=== PATIENT | female | born 2005 | race Two or more races ===

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

== ENCOUNTER 2025-02-26 14:39 | Inpatient (IN) | payer BC ==
[~2025-02-26] VITALS: Ht 162.6 cm; Wt 53.3 kg
[2025-02-26 14:57] LABS: Basophils # (auto) 0 10 ^3/uL (0-0.2); Basophils % (auto) 0.6 % (0.0-2.0); Eosinophils # (auto) 0 10 ^3/uL (0-0.8); Eosinophils % (auto) 0.4 % (0.0-7.0); Hematocrit 42.6 % (36.0-46.0); Hemoglobin 14.3 g/dL (12.2-16.2); Mean Corpuscular Hemoglobin 27.9 pg (28.0-32.0); Mean Corpuscular Hgb Conc. 33.5 g/dL (32.0-36.0); Mean Corpuscular Volume 83.4 fL (80.0-100.0); Monocytes # (auto) 0.4 10 ^3/uL (0-1.3); Neutrophils # (auto) 5.7 10 ^3/uL (1.6-8.6); Nucleated Red Blood Cells % 0.1 %; Platelet Count (auto) 234 10^3/uL (140-450); Red Blood Cells 5.11 10^6/uL (4.0-5.20); Red Cell Distribution Width 15.7 % (11.8-14.3); White Blood Cell 8.2 10^3/uL (4.4-10.8)
--- NOTE | 2025-02-26 15:03 | ED.PDOC ---
History of Present Illness HPI Comments 19-year-old female presents to the ER with prior surgical history of right calf in the chief complaint of palpitations. Patient reports having her heart rate beating fast whenever she stands up as well as goes black for 1 second. Patient stated these symptoms happened on Thursday, and the her heart rate no rmalizes when she sits down. Urgent care recently and was informed that she has possible anxiety. Patient notes on having headache which was not constant. Denies chills, fever, N/V/D, SOB, CP. No other associated symptoms, modifiers, recent injuries or sick contacts present at this time. Chief Complaint: Palpitations Time Seen by MD: 14:50 Reviewed Notes: Nurses Notes, Medications, Allergies Allergies: Coded Allergies: NO KNOWN ALLERGIES (Unverified , 01/10/18) Information Source: Patient Mode of Arrival: Ambulatory Severity: Moderate Timing: Days Duration: Since onset, Days Prehospital treatment: None Past Medical History PAST MEDICAL HISTORY: Denies Surgical History (Other): Right calf surgery NETWORK SUPPORT History: Denies all NETWORK SUPPORT Hx Family History Family History: Reviewed,noncontributory to illness, Unknown Social History Smoker: Non-Smoker Alcohol: Denies ETOH Use Drugs: Denies Drug Use Lives In: Home Constitutional: denies: chills, diaphoresis, fatigue, fever, malaise, sweats, weakness, others EENTM: denies: blurred vision, double vision, ear bleeding, ear discharge, ear drainage, ear pain, ear ringing, eye pain, eye redness, hearing loss, mouth pain, mouth swelling, nasal discharge, nose bleeding, nose congestion, nose pain, photophobia, tearing, throat pain, throat swelling, voice changes, others Respiratory: denies: cough, hemoptysis, orthopnea, SOB at rest, shortness of breath, SOB with excertion, stridor, wheezing, others Cardiovascular: reports: palpitations; denies: chest pain, dizzy spells, diaphoresis, Dyspnea on exertion, edema, irregular heart beat, left arm pain, lightheadedness, PND, syncope, others Gastrointestinal: denies: abdomen distended, abdominal pain, blood streaked bowels, constipated, diarrhea, dysphagia, difficulty swallowing, hematemesis, melena, nausea, poor appetite, poor fluid intake, rectal bleeding, rectal pain, vomiting, others Genitourinary: denies: abnormal vagina bleeding, burning, dyspareunia, dysuria, flank pain, frequency, hematuria, incontinence, pain, , vagina discharge, urgency, others Neurological: denies: dizziness, fainting, headache, left sided numbness, left sided weakness, numbness, paresthesia, pre-existing deficit, right sided numbness, right sided weakness, seizure, speech problems, tingling, tremors, weakness, others Musculoskeletal: denies: back pain, gout, joint pain, joint swelling, muscle pain, muscle stiffness, neck pain, others Integumetry: denies: bruises, change in color, change in hair/nails, dryness, laceration, lesions, lumps, rash, wounds, others Allergic/Immunocompromised: denies: Difficulty Healing, Frequent Infections, Hives, Itching, others Hematologic/Lymphatic: denies: anemia, blood clots, easy bleeding, easy bruising, swollen glands, others Endocrine: denies: excessive hunger, excessive sweating, excessive thirst, excessive urination, flushing, intolerance to cold, intolerance to heat, unexplained weight gain, unexplained weight loss, others Psychiatric: denies: anxiety, bipolar disorder, depression, hopeless, panic disorder, schizophrenia, sleepless, suicidal, others All Other Systems: Reviewed and Negative Physical Exam General Appearance: Moderate Distress, Normal HEENT: Normal ENT Inspection, Pharynx Normal, TMs Normal Neck: Full Range of Motion, Non-Tender, Normal, Normal Inspection Respiratory: Chest Non-Tender, Lungs Clear, No Accessory Muscle Use, No Respiratory Distress, Normal Breath Sounds Cardiovascular: No Edema, No JVD, No Murmur, No Gallop, Normal Peripheral Pulses, Tachycardia Breast Exam: Deferred Gastrointestinal: No Organomegaly, Non Tender, No Pulsatile Mass, Normal Bowel Sounds, Soft Genitalia: Deferred Pelvic: Deferred Rectal: Deferred Extremities: No calf tenderness, Normal capillary refill, Normal inspection, Normal range of motion, Non-tender, No pedal edema Musculoskeletal : Apperance: Normal Neurologic: Alert, foreign car mechanic II-XII nml as Tested, No Motor Deficits, Normal Affect, Normal Mood, No Sensory Deficits Cerebellar Function: Normal Reflexes: Normal Skin: Dry, Normal Color, Warm Peripheral Pulses: 3+ Radial (R), 3+ Radial (L) Lymphatic: No Adenopathy Was a procedure done? Was a procedure done?: No EKG EKG : Pulse Rate (adult): 152 [place]: Normal Cardiac Rhythm: ST Block: None Hypertrophy: None ST: Normal Differential Dx Considerations may include: Thyroid Electrolyte imbalance X-Ray, Labs, Meds, VS Vital Signs Date Time Temp Pulse Resp B/P (MAP) Pulse Ox O2 Delivery O2 Flow Rate FiO2 02/26/25 15:12 98.5 144 16 134/86 (102) 95 98.5 02/26/25 15:12 144 14 98 Room Air* 0 21 02/26/25 15:03 152 02/26/25 14:45 152 02/26/25 14:39 98.5 163 18 121/59 (79) 95 98.5 Lab Test 02/26/25 14:30 Range/Units White Blood Count 8.2 4.4-10.8 10^3/uL Red Blood Count 5.11 4.0-5.20 10^6/uL Hemoglobin 14.3 12.2-16.2 g/dL Hematocrit 42.6 36.0-46.0 % Mean Corpuscular Volume 83.4 80.0-100.0 fL Mean Corpuscular Hemoglobin 27.9 L 28.0-32.0 pg Mean Corpuscular Hemoglobin Concent 33.5 32.0-36.0 g/dL Red Cell Distribution Width 15.7 H 11.8-14.3 % Platelet Count 234 140-450 10^3/uL Mean Platelet Volume 8.9 6.9-10.8 fL Neutrophils (%) (Auto) 70.0 37.0-80.0 % Lymphocytes (%) (Auto) 24.0 10.0-50.0 % Monocytes (%) (Auto) 5.0 0.0-12.0 % Eosinophils (%) (Auto) 0.4 0.0-7.0 % Basophils (%) (Auto) 0.6 0.0-2.0 % Neutrophils # (Auto) 5.7 1.6-8.6 10 ^3/uL Lymphocytes # (Auto) 2.0 0.4-5.4 10 ^3/uL Monocytes # (Auto) 0.4 0-1.3 10 ^3/uL Eosinophils # (Auto) 0 0-0.8 10 ^3/uL Basophils # (Auto) 0 0-0.2 10 ^3/uL Nucleated Red Blood Cells 0.1 % Sodium Level Pending Potassium Level Pending Chloride Level Pending Carbon Dioxide Level Pending Anion Gap Pending Blood Urea Nitrogen Pending Creatinine Pending Glomerular Filtration Rate Calc Pending BUN/Creatinine Ratio Pending Serum Glucose Pending Calcium Level Pending Troponin I High Sensitivity Pending Thyroid Stimulating Hormone (TSH) Pending Current Medications Medications (Trade) Dose Ordered Sig/Maira Route Start Time Stop Time Status Last Admin Lorazepam (Ativan Tablet) 1 mg ONCE ONCE PO 02/26/25 14:45 02/26/25 14:46 DC 02/26/25 15:09 Patient alert. Complaining of palpitations. Heart rate is increased. Saturation pristine on room air. Establish intravenous access. Has been like this for almost a week. Possibly mitral valve disease. Explained to the patient that she will need further workup by Cardiology such as echocardiogram. Continue monitoring. EKG does show sinus tachycardia. Time of 1ST Reevaluation: 15:20 Reevaluation 1ST: Unchanged Patient Education/Counseling: Diagnosis, Treatment, Prognosis Family Education/Counseling: No Family Present Departure 1 Departure Time of Disposition: 15:41 Impression: Primary Impression: Sinus tachycardia Additional Impression: Mitral valve disease Disposition: ADMITTED INPATIENT Admit to: Med Surg Condition: Guarded Critical Care Note Critical Care Time?: Yes (90 min-critical care time only) Critical care comment: Increased heart rate Stability Stability form required: No Heart Score Heart Score: Heart Score Response (Comments) Value History Slightly Suspicious 0 EKG Normal 0 Age <45 0 Risk Factors No known risk factors 0 Troponin N/A 0 Total 0 I personally scribed for AURELIA MALIK MD ([email or web address]) on 02/26/25 at 15:03. Electronically submitted by Ronak Reyez ([email or web address]). AURELIA MALIK MD February 26, 2025 15:03
[2025-02-26] MEDS: LORazepam 0.5 MG TAB PO ONE (15:09)
[2025-02-26 15:12] VITALS: PULSE 144; RESP 14; O2SAT 98
[2025-02-26 15:12] LABS: Chloride 103 mmol/L (98-107); Sodium 139 mmol/L (136-145)
[2025-02-26 15:13] LABS: Anion Gap 13 (5-15); Carbon Dioxide 23 mmol/L (20-31)
[2025-02-26 15:18] LABS: BUN/Creatinine Ratio 10.4 (10.0-20.0); Blood Urea Nitrogen 10 mg/dL (9-23)
[2025-02-26 15:50] LABS: Calcium 10.7 mg/dL (8.7-10.4); Glucose 124 mg/dL (74-106); Potassium 3.3 mmol/L (3.5-5.1)
[2025-02-26] MEDS ORDERED: ACETAMINOPHEN 325 MG TAB PO PRN (19:15)
[2025-02-26] MEDS ORDERED: ONDANSETRON HCL 4 MG/2 ML VIAL IV PRN (19:15)
[2025-02-26] MEDS ORDERED: DOCUSATE SOD 100 MG CAP PO PRN (19:15)
[2025-02-26] MEDS ORDERED: HYDROcodone-ACET 5/325MG TAB PO PRN (19:15)
--- NOTE | 2025-02-26 19:22 | DVHHP2 ---
Admitting Diagnosis: Palpitation History of Present Illness 19-year-old female presents to the ER with prior surgical history of right calf in the chief complaint of palpitations. Patient reports having her heart rate beating fast whenever she stands up as well as goes black for 1 second. Patient stated these symptoms happened on Thursday, and the her heart rate normalizes when she sits down. Urgent care recently and was informed that she has possible anxiety. Patient notes on having headache which was not constant. Denies chills, fever, N/V/D, SOB, CP. No other associated symptoms, modifiers, recent injuries or sick contacts present at this time. PAST MEDICAL HISTORY: Denies Surgical History (Other): Right calf surgery IS CONSULTANT History: Denies all IS CONSULTANT Hx Family History Family History: Reviewed,noncontributory to illness, Unknown Social History Smoker: Non-Smoker Alcohol: Denies ETOH Use Drugs: Denies Drug Use Lives In: Home Allergies: Coded Allergies: NO KNOWN ALLERGIES (Unverified , 01/10/18) Current Medications Current Medications Medications (Trade) Dose Ordered Sig/Maira Route PRN Reason Start Time Stop Time Status Last Admin Sodium Chloride (Saline Lock Ns) 10 ml Q8HR IV 02/26/25 22:00 UNV Docusate Sodium (Colace Capsule) 100 mg BIDPRN PRN PO FOR CONSTIPATION 02/26/25 19:15 UNV Acetaminophen (Tylenol Tablet) 650 mg Q6HP PRN PO PAIN SCALE 1-3 OR TEMP>100.4 02/26/25 19:15 UNV Acetaminophen/ Hydrocodone Bitart ([place] 5/325MG Tab) 1 tab Q4HP PRN PO MODERATE PAIN (4-6 PAIN SCALE) 02/26/25 19:15 UNV Ondansetron HCl (Zofran) 4 mg Q4HP PRN IV NAUSEA / VOMITING 02/26/25 19:15 UNV Enoxaparin Sodium (Lovenox) 40 mg DAILY SC 02/27/25 10:00 UNV Vital Signs Vital Signs Date Time Temp Pulse Resp B/P (MAP) Pulse Ox O2 Delivery O2 Flow Rate FiO2 02/26/25 18:00 115 16 130/76 (94) 98 02/26/25 15:12 98.5 98.5 02/26/25 15:12 Room Air* 0 21 Physical Exam Generally-29 years old woman, well nourished well developed. No apparent distress HEENT-atraumatic, normocephalic Heart-sinus tachycardic Lungs clear to auscultate bilaterally Abdomen soft nontender nondistended Musculoskeletal-no edema cyanosis Neuro-AO x3, no focal deficits Results Labs Test 02/26/25 14:30 Range/Units White Blood Count 8.2 4.4-10.8 10^3/uL Red Blood Count 5.11 4.0-5.20 10^6/uL Hemoglobin 14.3 12.2-16.2 g/dL Hematocrit 42.6 36.0-46.0 % Mean Corpuscular Volume 83.4 80.0-100.0 fL Mean Corpuscular Hemoglobin 27.9 L 28.0-32.0 pg Mean Corpuscular Hemoglobin Concent 33.5 32.0-36.0 g/dL Red Cell Distribution Width 15.7 H 11.8-14.3 % Platelet Count 234 140-450 10^3/uL Mean Platelet Volume 8.9 6.9-10.8 fL Neutrophils (%) (Auto) 70.0 37.0-80.0 % Lymphocytes (%) (Auto) 24.0 10.0-50.0 % Monocytes (%) (Auto) 5.0 0.0-12.0 % Eosinophils (%) (Auto) 0.4 0.0-7.0 % Basophils (%) (Auto) 0.6 0.0-2.0 % Neutrophils # (Auto) 5.7 1.6-8.6 10 ^3/uL Lymphocytes # (Auto) 2.0 0.4-5.4 10 ^3/uL Monocytes # (Auto) 0.4 0-1.3 10 ^3/uL Eosinophils # (Auto) 0 0-0.8 10 ^3/uL Basophils # (Auto) 0 0-0.2 10 ^3/uL Nucleated Red Blood Cells 0.1 % Sodium Level 139 136-145 mmol/L Potassium Level 3.3 L 3.5-5.1 mmol/L Chloride Level 103 98-107 mmol/L Carbon Dioxide Level 23 20-31 mmol/L Anion Gap 13 5-15 Blood Urea Nitrogen 10 9-23 mg/dL Creatinine 0.96 0.550-1.02 mg/dL Glomerular Filtration Rate Calc 87 >90 mL/min BUN/Creatinine Ratio 10.4 10.0-20.0 Serum Glucose 124 H 74-106 mg/dL Calcium Level 10.7 H 8.7-10.4 mg/dL Troponin I High Sensitivity < 3 L </=34 ng/L Thyroid Stimulating Hormone (TSH) 0.63 0.55-4.78 uIU/mL Primary Diagnosis Sinus tachycardic Plan Rate and rhythm a 122/40 The patient is mildly anxious Hydroxyzine p.r.n. Check TSH, T4 for possible thyroid Check echocardiogram of the heart for restrictive heart disease Regular diet Full code Lovenox for DVT prophylaxis No GI prophylaxis needed Plan discussed with: Patient Problems List: (1) Sinus tachycardia Status: Acute Date of Service: February 26, 2025 Billing Provider: SHEREE ANNE MD Common Visit Codes: [id number] INP/OBS CARE (MOD) SHEREE ANNE MD February 26, 2025 19:22
[2025-02-26 19:30] VITALS: O2SAT 98
[2025-02-26] MEDS: POTASSIUM CHL 20 Meq TABLET PO ONE (19:55)
[2025-02-26] MEDS: SODIUM CHLOR 0.9% PF (SALINE LOCK) 10ML VIAL/SYR IV SCH (22:00)
[2025-02-26 23:09] LABS: Urine Bacteria FEW /hpf (None Seen); Urine Blood Negative /uL (Negative); Urine Clarity Clear (Clear); Urine Color Colorless (Yellow); Urine Protein, UAD Negative (Negative); Urine Specific Gravity 1.008 (1.001-1.035); Urine Squamous Epithelial Cell FEW /hpf (<5); Urine Urobilinogen Normal (Negative); Urine WBC 45 /HPF (0-5); Urine pH 6.5 (5.0-9.0)
[2025-02-26 23:17] VITALS: BP 129/79; PULSE 120; RESP 18; TEMP 97.4; O2SAT 98
[2025-02-26 23:18] VITALS: BP 129/79; PULSE 120; RESP 17; TEMP 99.4; O2SAT 98
[2025-02-27] VITALS (8 sets, daily range): BP systolic 103–122; BP diastolic 66–73; PULSE 74–113; RESP 15–20; TEMP 97.8–98.7; O2SAT 98–100
[2025-02-27 07:35] LABS: Basophils # (auto) 0.1 10 ^3/uL (0-0.2); Basophils % (auto) 1.1 % (0.0-2.0); Eosinophils # (auto) 0.1 10 ^3/uL (0-0.8); Eosinophils % (auto) 1.5 % (0.0-7.0); Hematocrit 40.5 % (36.0-46.0); Hemoglobin 13.4 g/dL (12.2-16.2); Lymphocytes # (auto) 2.3 10 ^3/uL (0.4-5.4); Lymphocytes % (auto) 37.7 % (10.0-50.0); Mean Corpuscular Hemoglobin 27.7 pg (28.0-32.0); Mean Corpuscular Volume 83.7 fL (80.0-100.0); Monocytes # (auto) 0.4 10 ^3/uL (0-1.3); Monocytes % (auto) 6.8 % (0.0-12.0); Neutrophils # (auto) 3.3 10 ^3/uL (1.6-8.6); Neutrophils % (auto) 52.9 % (37.0-80.0); Nucleated Red Blood Cells % 0.1 %; Platelet Count (auto) 192 10^3/uL (140-450); Red Blood Cells 4.84 10^6/uL (4.0-5.20); Red Cell Distribution Width 15.5 % (11.8-14.3); White Blood Cell 6.2 10^3/uL (4.4-10.8)
[2025-02-27 07:41] LABS: Alkaline Phosphatase 73 U/L (46-116); Anion Gap 11 (5-15); BUN/Creatinine Ratio 13.5 (10.0-20.0); Blood Urea Nitrogen 12 mg/dL (9-23); Calcium 10.4 mg/dL (8.7-10.4); Carbon Dioxide 24 mmol/L (20-31); Chloride 105 mmol/L (98-107); Glucose 86 mg/dL (74-106); Magnesium 2.2 mg/dL (1.6-2.6); Potassium 4.3 mmol/L (3.5-5.1); Sodium 140 mmol/L (136-145); Total Protein 7.6 g/dL (5.7-8.2)
[2025-02-27 07:42] LABS: Bilirubin, Total 0.6 mg/dL (0.2-1.0)
[2025-02-27 07:43] LABS: Alanine Aminotransferase < 9 U/L (7-40); Albumin 4.8 g/dL (3.2-4.8); Aspartate Aminotransferase 10 U/L (13-40)
[2025-02-27] MEDS: ENOXAPARIN SOD 40 MG/0.4 ML SYRINGE SC SCH (09:13)
--- NOTE | 2025-02-27 11:20 | DVHSR ---
APPROVED REPORT EXAM: LIMITED Two-dimensional and M-mode echocardiogram with Doppler and color Doppler. Blood Pressure: 109/66 mmHg INDICATION Sinus Tachycardia RISK FACTORS Height: 64, Weight: 100 DIMENSIONS LVDd3.4 (3.8-5.7cm)LA (2D)2.4 (1.9-4.0cm)Aortic Root2.6 (2.0-3.7cm) LVDs2.3 (2.5-4.0cm)LA (MM) (1.9-4.0cm)Aortic Cusp Exc1.6 (1.5-2.0cm) EF (%) 62.0 (55-70%)Rt. Atrium (1.9-4.0cm)Asc. Aorta cm IVSd0.9 (0.7-1.1cm)RV (D) (1.8-2.4cm) PWd0.8 (0.7-1.1cm) Mitral Valve MitralMitral Stenosis E/A ratio0.02D MVAcm2 Aortic Valve Aortic ValveAortic Stenosis LVOT Diameter1.6 (1.8-2.4cm)Doppler AVAcm2 Pulmonic Valve V20.94m/s Tricuspid Valve [id number] Other Information Technically limited study due to body habitus, patient position and high heart rate. Conclusion Left ventricle: Left ventricle was normal sized with normal systolic function. LVEF was 60-65%. The re was no gross wall motion abnormality. Right ventricle: Right ventricle was normal sized with normal systolic function. Both atria were nor mal sized. Aortic valve: Aortic valve was trileaflet. There was no aortic insufficiency/stenosis. There was tr narinder mitral regurgitation. There was no tricuspid regurgitation. Pulmonary valve was not well visual ized. As there was no good tricuspid regurgitation jet, right ventricular systolic pressure could not be es timated. There was no echocardiographic evidence for pulmonary hypertension. There was trivial pericardial effusion.
--- NOTE | 2025-02-27 13:17 | DVHPN2 ---
Reviewed: Care Plan, H&P, Labs, Medications, Previous Orders, Radiology Changes from previous H/P or p: No Changes Objective Vitals Vital Signs Date Time Temp Pulse Resp B/P (MAP) Pulse Ox O2 Delivery O2 Flow Rate FiO2 02/27/25 09:25 97.8 107 15 106/68 (81) 99 97.8 02/26/25 23:17 Room Air* 0 21 Intake/Output Intake and Output 02/27/25 07:00 Intake Total 150 ml Balance 150 ml Intake Oral 150 ml Medications Current Medications Medications Dose Ordered Sig/Maira Route Start Time Stop Time Status Last Admin Dose Admin Sodium Chloride 10 ml Q8HR IV 02/26/25 22:00 02/27/25 06:35 10 ML Docusate Sodium 100 mg BIDPRN PRN PO 02/26/25 19:15 Acetaminophen 650 mg Q6HP PRN PO 02/26/25 19:15 Acetaminophen/ Hydrocodone Bitart 1 tab Q4HP PRN PO 02/26/25 19:15 Ondansetron HCl 4 mg Q4HP PRN IV 02/26/25 19:15 Enoxaparin Sodium 40 mg DAILY SC 02/27/25 10:00 Hydroxyzine HCl 20 mg Q6H PRN PO 02/26/25 19:15 Laboratory Results Laboratory Tests 02/27/25 05:25 Chemistry Test 02/26/25 14:30 02/27/25 05:25 Calcium Level 10.7 mg/dL (8.7-10.4) H 10.4 mg/dL (8.7-10.4) Albumin 4.8 g/dL (3.2-4.8) Magnesium Level 2.2 mg/dL (1.6-2.6) Total Protein 7.6 g/dL (5.7-8.2) LFT Test 02/27/25 05:25 Alanine Aminotransferase (ALT) < 9 U/L (7-40) Alkaline Phosphatase 73 U/L (46-116) Aspartate Amino Transferase (AST) 10 U/L (13-40) L Total Bilirubin 0.6 mg/dL (0.2-1.0) HgA1c, TSH Test 02/26/25 14:30 Thyroid Stimulating Hormone (TSH) 0.63 uIU/mL (0.55-4.78) Urinalysis Test 02/26/25 22:56 Urine Color Colorless (Yellow) Urine Clarity Clear (Clear) Urine pH 6.5 (5.0-9.0) Urine Specific [place] 1.008 (1.001-1.035) Urine Protein Negative (Negative) Urine Ketones 2+ (Negative) H Urine Blood Negative /uL (Negative) Urine Nitrite Negative (Negative) Urine Bilirubin Negative (Negative) Urine Urobilinogen Normal mg/dL (Negative) Urine Leukocyte Esterase 3+ /uL (Negative) Urine RBC 2 /hpf (0 - 4) Urine Microscopic WBC 45 /HPF (0-5) H Urine Squamous Epithelial Cells Few /hpf (<5) Urine Bacteria Few /hpf (None Seen) H Urine Glucose Normal mg/dL (Normal) Labs and/or images reviewed: Labs reviewed by me, Image(s) reviewed by me Assessment/Plan Assessment/Plan Intermittent tachycardia: TSH normal, urine drug screen pending beta HCG pending, echo 60 percent ejection fraction, cardiology consult for Dr. Flores Sepsis secondary to acute urinary tract infection: Blood cultures urine cultures Stefani Xiong and ROSSI Saha at bedside Plan discussed with: Patient My Orders Orders - BASASM WOLF MD Procedure Category Date Status Time Blood Culture TREE 02/27/25 Logged 13:08 Urine Bacterial TREE 02/27/25 Logged Culture 13:08 * Cardiology Consult CONS 02/27/25 Transmitted 13:08 Beta Hcg, Quantitative LAB 02/27/25 Transmitted 13:11 Date of Service: February 27, 2025 Billing Provider: BASSAM WOLF MD Common Visit Codes: [id number] INP/OBS CARE(HIGH) BASSAM WOLF MD February 27, 2025 13:17
[2025-02-27] MEDS: cefTRIAXone 1GM/50ML D5W 50 ML IV ONE (14:50)
[2025-02-27 16:31] LABS: Amphetamine Screen, Urine Neg (NEGATIVE); Barbiturate Scree,Urine Neg (NEGATIVE); Benzodiazephine Screen, Urine Neg (NEGATIVE); Cannabinoid Screen, Urine Neg (NEGATIVE); Cocaine Screen, Urine Neg (NEGATIVE); Opiate Scree,Urine Neg (NEGATIVE); Phencyclidine Screen, Urine Neg (NEGATIVE)
[2025-02-28] VITALS (7 sets, daily range): BP systolic 103–127; BP diastolic 63–76; PULSE 73–103; RESP 16–20; TEMP 97.8–98.4; O2SAT 98–99
[2025-02-28 06:18] LABS: Basophils # (auto) 0.1 10 ^3/uL (0-0.2); Basophils % (auto) 1.1 % (0.0-2.0); Eosinophils # (auto) 0.2 10 ^3/uL (0-0.8); Eosinophils % (auto) 2.9 % (0.0-7.0); Hematocrit 38.2 % (36.0-46.0); Hemoglobin 12.6 g/dL (12.2-16.2); Lymphocytes # (auto) 2.3 10 ^3/uL (0.4-5.4); Lymphocytes % (auto) 43.9 % (10.0-50.0); Mean Corpuscular Hemoglobin 27.8 pg (28.0-32.0); Mean Corpuscular Hgb Conc. 33.1 g/dL (32.0-36.0); Monocytes # (auto) 0.4 10 ^3/uL (0-1.3); Monocytes % (auto) 6.7 % (0.0-12.0); Neutrophils # (auto) 2.4 10 ^3/uL (1.6-8.6); Neutrophils % (auto) 45.4 % (37.0-80.0); Nucleated Red Blood Cells % 0.1 %; Platelet Count (auto) 174 10^3/uL (140-450); Red Blood Cells 4.55 10^6/uL (4.0-5.20); Red Cell Distribution Width 15.8 % (11.8-14.3); White Blood Cell 5.3 10^3/uL (4.4-10.8)
[2025-02-28 06:43] LABS: Alanine Aminotransferase < 9 U/L (7-40); Albumin 4.5 g/dL (3.2-4.8); Alkaline Phosphatase 65 U/L (46-116); Anion Gap 12 (5-15); Aspartate Aminotransferase 10 U/L (13-40); BUN/Creatinine Ratio 12.5 (10.0-20.0); Blood Urea Nitrogen 11 mg/dL (9-23); Calcium 10.1 mg/dL (8.7-10.4); Carbon Dioxide 24 mmol/L (20-31); Chloride 103 mmol/L (98-107); Glucose 94 mg/dL (74-106); Potassium 3.9 mmol/L (3.5-5.1); Sodium 139 mmol/L (136-145); Total Protein 7.1 g/dL (5.7-8.2)
[2025-02-28 06:44] LABS: Bilirubin, Total 0.5 mg/dL (0.2-1.0)
[2025-02-28] MEDS: cefTRIAXone 1GM/50ML D5W 50 ML IV SCH (09:24)
--- NOTE | 2025-02-28 13:11 | DVHPN2 ---
Reviewed: Care Plan, H&P, Labs, Medications, Previous Orders, Radiology Changes from previous H/P or p: No Changes Objective Vitals Vital Signs Date Time Temp Pulse Resp B/P (MAP) Pulse Ox O2 Delivery O2 Flow Rate FiO2 02/28/25 12:29 98.4 103 20 109/70 (83) 98 98.4 02/28/25 08:00 Room Air* 0 21 Intake/Output Intake and Output 02/28/25 07:00 Intake Total 2570 ml Balance 2570 ml Intake Oral 2520 ml IV Total 50 ml # Voids 6 Medications Current Medications Medications Dose Ordered Sig/Maira Route Start Time Stop Time Status Last Admin Dose Admin Sodium Chloride 10 ml Q8HR IV 02/26/25 22:00 02/28/25 06:30 10 ML Docusate Sodium 100 mg BIDPRN PRN PO 02/26/25 19:15 Acetaminophen 650 mg Q6HP PRN PO 02/26/25 19:15 Acetaminophen/ Hydrocodone Bitart 1 tab Q4HP PRN PO 02/26/25 19:15 Ondansetron HCl 4 mg Q4HP PRN IV 02/26/25 19:15 Enoxaparin Sodium 40 mg DAILY SC 02/27/25 10:00 Hydroxyzine HCl 20 mg Q6H PRN PO 02/26/25 19:15 Ceftriaxone Sodium 50 ml @ 100 mls/hr DAILY@09 IV 02/28/25 09:00 02/28/25 09:24 100 MLS/HR Laboratory Results Laboratory Tests 02/28/25 05:10 Chemistry Test 02/28/25 05:10 Albumin 4.5 g/dL (3.2-4.8) Calcium Level 10.1 mg/dL (8.7-10.4) Magnesium Level 2.0 mg/dL (1.6-2.6) Total Protein 7.1 g/dL (5.7-8.2) LFT Test 02/28/25 05:10 Alanine Aminotransferase (ALT) < 9 U/L (7-40) Alkaline Phosphatase 65 U/L (46-116) Aspartate Amino Transferase (AST) 10 U/L (13-40) L Total Bilirubin 0.5 mg/dL (0.2-1.0) Urinalysis Test 02/26/25 22:56 Urine Color Colorless (Yellow) Urine Clarity Clear (Clear) Urine pH 6.5 (5.0-9.0) Urine Specific [place] 1.008 (1.001-1.035) Urine Protein Negative (Negative) Urine Ketones 2+ (Negative) H Urine Blood Negative /uL (Negative) Urine Nitrite Negative (Negative) Urine Bilirubin Negative (Negative) Urine Urobilinogen Normal mg/dL (Negative) Urine Leukocyte Esterase 3+ /uL (Negative) Urine RBC 2 /hpf (0 - 4) Urine Microscopic WBC 45 /HPF (0-5) H Urine Squamous Epithelial Cells Few /hpf (<5) Urine Bacteria Few /hpf (None Seen) H Urine Glucose Normal mg/dL (Normal) Microbiology Microbiology Date/Time Source Procedure Growth Status 02/27/25 15:56 Voided Urine Urine Culture - Preliminary Resulted Labs and/or images reviewed: Labs reviewed by me, Image(s) reviewed by me Assessment/Plan Assessment/Plan Intermittent tachycardia: TSH normal, urine drug screen negative, echo 60 percent ejection fraction, cardiology Taina Horne advised the patient to be treated for sepsis and infection and no cardiac workup needed ruled out by negative beta HCG Acute Dehydration: IV fluids Sepsis secondary to acute urinary tract infection: Blood cultures pending, urine cultures negative, continue Rocephin ROSSI Godwin at bed side Plan discussed with: Patient My Orders Orders - BASSAM WOLF MD Procedure Category Date Status Time Blood Culture TREE 02/27/25 In Process 13:08 Urine Bacterial TREE 02/27/25 In Process Culture 13:08 * Cardiology Consult CONS 02/27/25 Transmitted 13:08 Ceftriaxone 1gm/50ml PHA 02/28/25 In Process D5w (Rocephin) 09:00 Date of Service: February 28, 2025 Billing Provider: BASSAM WOLF MD Common Visit Codes: [id number] INP/OBS CARE(HIGH) BASSAM WOLF MD February 28, 2025 13:11
--- NOTE | 2025-02-28 13:33 | ECG ---
[facility] Test Date: 2025-02-26 Test Time: 14:45:16 Pat Name: TERELL DOAN Department: ER Room: 0287T Gender: F Weigher And Grader: BHAVANA : 2005 Requested By: AURELIA MALIK Order Number: [id number] Reading MD: Measurements Intervals [place] Rate: 152 P: 78 UT: 125 QRS: 109 QRSD: 85 T: -6 QT: 242 QTc: 385 Interpretive Statements Sinus tachycardia Consider right atrial enlargement Consider right ventricular hypertrophy Baseline wander in lead(s) III,aVF Please click the below link to view image of tracing.
[2025-02-28] MEDS: SODIUM CHLORIDE 0.9% 1,000 ML IV SCH (13:49)
[2025-02-28] MEDS: hydrOXYzine HCL 10 MG TAB PO PRN (17:18)
[2025-03-01] VITALS (9 sets, daily range): BP systolic 101–142; BP diastolic 60–81; PULSE 70–140; RESP 16–20; TEMP 97.4–98.8; O2SAT 98–100
[2025-03-01 06:45] LABS: Basophils # (auto) 0 10 ^3/uL (0-0.2); Basophils % (auto) 0.9 % (0.0-2.0); Eosinophils # (auto) 0.2 10 ^3/uL (0-0.8); Hematocrit 34.9 % (36.0-46.0); Hemoglobin 11.4 g/dL (12.2-16.2); Lymphocytes # (auto) 2.5 10 ^3/uL (0.4-5.4); Lymphocytes % (auto) 48.3 % (10.0-50.0); Mean Corpuscular Hemoglobin 27.5 pg (28.0-32.0); Mean Corpuscular Hgb Conc. 32.7 g/dL (32.0-36.0); Mean Corpuscular Volume 84.2 fL (80.0-100.0); Monocytes # (auto) 0.3 10 ^3/uL (0-1.3); Monocytes % (auto) 6.6 % (0.0-12.0); Neutrophils # (auto) 2.1 10 ^3/uL (1.6-8.6); Neutrophils % (auto) 41.2 % (37.0-80.0); Nucleated Red Blood Cells % 0.1 %; Platelet Count (auto) 156 10^3/uL (140-450); Red Blood Cells 4.14 10^6/uL (4.0-5.20); Red Cell Distribution Width 15.7 % (11.8-14.3); White Blood Cell 5.2 10^3/uL (4.4-10.8)
[2025-03-01 06:55] LABS: Albumin 3.8 g/dL (3.2-4.8); Alkaline Phosphatase 57 U/L (46-116); Anion Gap 6 (5-15); BUN/Creatinine Ratio 7.4 (10.0-20.0); Calcium 9.2 mg/dL (8.7-10.4); Carbon Dioxide 26 mmol/L (20-31); Glucose 94 mg/dL (74-106); Magnesium 1.9 mg/dL (1.6-2.6); Potassium 4.5 mmol/L (3.5-5.1); Sodium 144 mmol/L (136-145)
[2025-03-01 06:56] LABS: Bilirubin, Total 0.4 mg/dL (0.2-1.0)
[2025-03-01 07:06] LABS: Alanine Aminotransferase < 9 U/L (7-40); Aspartate Aminotransferase 9 U/L (13-40); Blood Urea Nitrogen 6 mg/dL (9-23); Chloride 112 mmol/L (98-107)
--- NOTE | 2025-03-01 13:34 | DVHPN2 ---
Reviewed: Care Plan, H&P, Labs, Medications, Previous Orders, Radiology Changes from previous H/P or p: No Changes Objective Vitals Vital Signs Date Time Temp Pulse Resp B/P (MAP) Pulse Ox O2 Delivery O2 Flow Rate FiO2 03/01/25 12:37 98.3 89 20 103/60 (74) 100 98.3 03/01/25 08:00 Room Air* 0 21 Intake/Output Intake and Output 03/01/25 07:00 Intake Total 5000 ml Balance 5000 ml Intake Oral 2300 ml IV Total 2700 ml # Voids 9 # Bowel Movements 1 Medications Current Medications Medications Dose Ordered Sig/Maira Route Start Time Stop Time Status Last Admin Dose Admin Sodium Chloride 10 ml Q8HR IV 02/26/25 22:00 03/01/25 09:21 10 ML Docusate Sodium 100 mg BIDPRN PRN PO 02/26/25 19:15 Acetaminophen 650 mg Q6HP PRN PO 02/26/25 19:15 Acetaminophen/ Hydrocodone Bitart 1 tab Q4HP PRN PO 02/26/25 19:15 Ondansetron HCl 4 mg Q4HP PRN IV 02/26/25 19:15 Enoxaparin Sodium 40 mg DAILY SC 02/27/25 10:00 Hydroxyzine HCl 20 mg Q6H PRN PO 02/26/25 19:15 02/28/25 17:18 20 MG Ceftriaxone Sodium 50 ml @ 100 mls/hr DAILY@09 IV 02/28/25 09:00 03/01/25 09:21 100 MLS/HR Sodium Chloride 1,000 ml @ 150 mls/hr Q6H40M IV 02/28/25 13:15 03/01/25 09:26 150 MLS/HR Laboratory Results Laboratory Tests 03/01/25 05:34 Chemistry Test 03/01/25 05:34 Albumin 3.8 g/dL (3.2-4.8) Calcium Level 9.2 mg/dL (8.7-10.4) Magnesium Level 1.9 mg/dL (1.6-2.6) Total Protein 6.0 g/dL (5.7-8.2) LFT Test 03/01/25 05:34 Alanine Aminotransferase (ALT) < 9 U/L (7-40) Alkaline Phosphatase 57 U/L (46-116) Aspartate Amino Transferase (AST) 9 U/L (13-40) L Total Bilirubin 0.4 mg/dL (0.2-1.0) Urinalysis Test 02/26/25 22:56 Urine Color Colorless (Yellow) Urine Clarity Clear (Clear) Urine pH 6.5 (5.0-9.0) Urine Specific [place] 1.008 (1.001-1.035) Urine Protein Negative (Negative) Urine Ketones 2+ (Negative) H Urine Blood Negative /uL (Negative) Urine Nitrite Negative (Negative) Urine Bilirubin Negative (Negative) Urine Urobilinogen Normal mg/dL (Negative) Urine Leukocyte Esterase 3+ /uL (Negative) Urine RBC 2 /hpf (0 - 4) Urine Microscopic WBC 45 /HPF (0-5) H Urine Squamous Epithelial Cells Few /hpf (<5) Urine Bacteria Few /hpf (None Seen) H Urine Glucose Normal mg/dL (Normal) Microbiology Microbiology Date/Time Source Procedure Growth Status 02/27/25 15:56 Voided Urine Urine Culture - Preliminary Resulted 02/27/25 14:30 Blood Blood Culture - Preliminary NO GROWTH AFTER 24 HOURS OF INCUBATION. Resulted Labs and/or images reviewed: Labs reviewed by me, Image(s) reviewed by me Assessment/Plan Assessment/Plan Intermittent tachycardia: TSH normal, urine drug screen negative, echo 60 percent ejection fraction, cardiology Taina Horne advised the patient to be treated for sepsis and infection and no cardiac workup needed ruled out by negative beta HCG Acute Dehydration: IV fluids Episodic hypotension Sepsis secondary to acute urinary tract infection: Blood cultures pending, urine cultures negative, continue Rocephin ROSSI Godwin at bed side Patient is unwilling to be discharged home and insisting to be seen by pension manager, requested CAMPAIGN MARKETING SPECIALIST Taina Horne to evaluate the pt. Plan discussed with: Patient, Other (father) Date of Service: March 01, 2025 Billing Provider: BASSAM WOLF MD Common Visit Codes: [id number] INP/OBS CARE(HIGH) BASSAM WOLF MD March 01, 2025 13:34
--- NOTE | 2025-03-01 15:33 | DVHCONRES ---
Date Seen: March 01, 2025 Resident Creating Document: DIANAPAULINA BATEMANIL RESIDENT History of Present Illness 19 year Old female with no past medical history presented with complaints of "increased heart rate" that she recorded on her Apple watch, associated with headache and mild dizziness when she stands up from sitting position. Patient mentioned that she has been feeling anxious Thursday. On presenting to the hospital, patient was found to be in sinus tachycardia was given IV fluids and IV antibiotics for UTI. Cardiology was consulted for "increased heart rate" Patient seen and evaluated at bedside Patient is currently not mentioning any active symptoms. Past medical history Denied Past surgical history Denied Social history Denied smoking, alcohol, marijuana or any other drug intake Patient history Denied Family history Diabetes mellitus and thyroid issues in grand parents Allergic history No known allergies Family History: Cardiovascular disease grandma Diabetes mellitus grandma Allergies: Coded Allergies: NO KNOWN ALLERGIES (Unverified , 01/10/18) Home Meds No Active Prescriptions or Reported Meds Review of Systems As described in the HPI Vital Signs Vital Signs Date Time Temp Pulse Resp B/P (MAP) Pulse Ox O2 Delivery O2 Flow Rate FiO2 03/01/25 13:57 88 115/66 (82) 125 142/72 (95) 140 120/79 (93) 03/01/25 12:37 98.3 20 100 98.3 03/01/25 08:00 Room Air* 0 21 Physical Exam Examination General Appearance: Alert, Oriented X3, Cooperative, No acute distress HEENT: EOMI Respiratory: Clear to auscultation, Normal air movement Cardiovascular: Regular rate, Normal S1, Normal S2 Abdominal: Normal bowel sounds Extremities: No cyanosis, No edema, Normal pulses, No tenderness/swelling Skin: No rashes, No breakdown Neuro: Normal gait, Normal speech, Strength at 5/5 X4 ext, Normal tone, Sensation intact, Cranial nerves 3-12 NL, Reflexes 2+ Psych/Mental Status: Mental status NL, Mood NL Labs/Diagnostic Data Labs Test 03/01/25 05:34 02/27/25 15:56 02/27/25 05:25 02/26/25 22:56 Range/Units White Blood Count 5.2 4.4-10.8 10^3/uL Red Blood Count 4.14 4.0-5.20 10^6/uL Hemoglobin 11.4 L 12.2-16.2 g/dL Hematocrit 34.9 L 36.0-46.0 % Mean Corpuscular Volume 84.2 80.0-100.0 fL Mean Corpuscular Hemoglobin 27.5 L 28.0-32.0 pg Mean Corpuscular Hemoglobin Concent 32.7 32.0-36.0 g/dL Red Cell Distribution Width 15.7 H 11.8-14.3 % Platelet Count 156 140-450 10^3/uL Mean Platelet Volume 9.4 6.9-10.8 fL Neutrophils (%) (Auto) 41.2 37.0-80.0 % Lymphocytes (%) (Auto) 48.3 10.0-50.0 % Monocytes (%) (Auto) 6.6 0.0-12.0 % Eosinophils (%) (Auto) 3.0 0.0-7.0 % Basophils (%) (Auto) 0.9 0.0-2.0 % Neutrophils # (Auto) 2.1 1.6-8.6 10 ^3/uL Lymphocytes # (Auto) 2.5 0.4-5.4 10 ^3/uL Monocytes # (Auto) 0.3 0-1.3 10 ^3/uL Eosinophils # (Auto) 0.2 0-0.8 10 ^3/uL Basophils # (Auto) 0 0-0.2 10 ^3/uL Nucleated Red Blood Cells 0.1 % Sodium Level 144 # 136-145 mmol/L Potassium Level 4.5 3.5-5.1 mmol/L Chloride Level 112 H 98-107 mmol/L Carbon Dioxide Level 26 20-31 mmol/L Anion Gap 6 5-15 Blood Urea Nitrogen 6 L 9-23 mg/dL Creatinine 0.81 0.550-1.02 mg/dL Glomerular Filtration Rate Calc 107 >90 mL/min BUN/Creatinine Ratio 7.4 L 10.0-20.0 Serum Glucose 94 74-106 mg/dL Calcium Level 9.2 8.7-10.4 mg/dL Magnesium Level 1.9 1.6-2.6 mg/dL Total Bilirubin 0.4 0.2-1.0 mg/dL Aspartate Amino Transferase (AST) 9 L 13-40 U/L Alanine Aminotransferase (ALT) < 9 7-40 U/L Alkaline Phosphatase 57 46-116 U/L Total Protein 6.0 5.7-8.2 g/dL Albumin 3.8 3.2-4.8 g/dL Urine Opiates Screen Neg NEGATIVE Urine Fentanyl Screen Neg NEGATIVE Urine Barbiturates Screen Neg NEGATIVE Urine Phencyclidine Screen Neg NEGATIVE Urine Amphetamines Screen Neg NEGATIVE Urine Benzodiazepines Screen Neg NEGATIVE Urine Cocaine Screen Neg NEGATIVE Urine Cannabinoids Screen Neg NEGATIVE Beta HCG, Quantitative 0.6 L 1.5-4.2 mIU/mL Urine Color Colorless Yellow Urine Clarity Clear Clear Urine pH 6.5 5.0-9.0 Urine Specific [place] 1.008 1.001-1.035 Urine Protein Negative Negative Urine Ketones 2+ H Negative Urine Blood Negative Negative /uL Urine Nitrite Negative Negative Urine Bilirubin Negative Negative Urine Urobilinogen Normal Negative mg/dL Urine Leukocyte Esterase 3+ Negative /uL Urine RBC 2 0 - 4 /hpf Urine Microscopic WBC 45 H 0-5 /HPF Urine Squamous Epithelial Cells Few <5 /hpf Urine Bacteria Few H None Seen /hpf Urine Glucose Normal Normal mg/dL Test 02/26/25 14:30 Range/Units Troponin I High Sensitivity < 3 L </=34 ng/L C-Reactive Protein High Sensitivity 0.03 <1.0 mg/dL Thyroid Stimulating Hormone (TSH) 0.63 0.55-4.78 uIU/mL Free Thyroxine (T4) Calculated 1.46 0.89-1.76 ng/dL Microbiology Date/Time Source Procedure Growth Status 02/27/25 15:56 Voided Urine Urine Culture - Preliminary Resulted 02/27/25 14:30 Blood Blood Culture - Preliminary NO GROWTH AFTER 48 HOURS OF INCUBATION. Resulted Plan/Recommendation Assessment/plan # sinus tachycardia likely due to dehydration post UTI, and anxiety -normal EKG Telemetry shows no other abnormalities Echocardiogram within normal limits Orthostatic vitals, positive for orthostatic hypotension # UTI # anxiety PLAN Patient advised to follow up with outpatient with primary care and later Cardiology if patient still has persistent tachycardia after resolution of UTI Outpatient workup for tachycardia including serum cortisol AM and PM levels, endocrine workup, autonomic testing if patient has still persistent tachycardia after resolution of UTI Patient is advised to drink plenty of water and salt intake Patient was advised to use compression stockings if tachycardia persists We will sign off from this case as of now, kindly reconsult if needed Case was discussed with Dr. Tao Plan discussed with: Patient, Other TERRIE BARAJAS RESIDENT March 01, 2025 15:33
--- NOTE | 2025-03-01 15:39 | DVH ---
EXAM: XY CHEST XRAY 1 VIEW Indication: palpitations Technique: Single frontal view of the chest was obtained Comparison: None FINDINGS: Lines and Tubes: None Lungs: No focal consolidation. Pleura: No effusion. No pneumothorax. Cardiomediastinal contours: Unremarkable Bones: No acute osseous abnormality. IMPRESSION: No acute cardiopulmonary disease.
[2025-03-02 01:00] VITALS: BP 107/68; PULSE 58; RESP 18; TEMP 98.1; O2SAT 98
[2025-03-02 05:00] VITALS: BP_SYST 0; BP_SYST 112; BP_DIAS 65; PULSE 60; RESP 18; TEMP 97.9; O2SAT 98
[2025-03-02 07:30] LABS: Basophils # (auto) 0.1 10 ^3/uL (0-0.2); Basophils % (auto) 0.9 % (0.0-2.0); Eosinophils # (auto) 0.2 10 ^3/uL (0-0.8); Eosinophils % (auto) 3.6 % (0.0-7.0); Hematocrit 37.5 % (36.0-46.0); Hemoglobin 12.4 g/dL (12.2-16.2); Lymphocytes # (auto) 2.9 10 ^3/uL (0.4-5.4); Lymphocytes % (auto) 51.1 % (10.0-50.0); Mean Corpuscular Hemoglobin 27.9 pg (28.0-32.0); Mean Corpuscular Hgb Conc. 32.9 g/dL (32.0-36.0); Mean Corpuscular Volume 84.8 fL (80.0-100.0); Monocytes # (auto) 0.3 10 ^3/uL (0-1.3); Monocytes % (auto) 5.8 % (0.0-12.0); Neutrophils # (auto) 2.2 10 ^3/uL (1.6-8.6); Neutrophils % (auto) 38.6 % (37.0-80.0); Nucleated Red Blood Cells % 0.2 %; Platelet Count (auto) 170 10^3/uL (140-450); Red Blood Cells 4.43 10^6/uL (4.0-5.20); White Blood Cell 5.7 10^3/uL (4.4-10.8)
[2025-03-02 07:55] LABS: Alkaline Phosphatase 62 U/L (46-116); Anion Gap 7 (5-15); BUN/Creatinine Ratio 6.3 (10.0-20.0); Calcium 9.6 mg/dL (8.7-10.4); Carbon Dioxide 25 mmol/L (20-31); Glucose 89 mg/dL (74-106); Potassium 4.6 mmol/L (3.5-5.1); Sodium 142 mmol/L (136-145)
[2025-03-02 07:56] LABS: Alanine Aminotransferase 9 U/L (7-40); Aspartate Aminotransferase 10 U/L (13-40); Blood Urea Nitrogen 5 mg/dL (9-23); Chloride 110 mmol/L (98-107); Magnesium 1.9 mg/dL (1.6-2.6); Total Protein 6.7 g/dL (5.7-8.2)
[2025-03-02 07:57] LABS: Albumin 4.2 g/dL (3.2-4.8); Bilirubin, Total 0.5 mg/dL (0.2-1.0)
[2025-03-02 08:00] VITALS: PULSE 74
[2025-03-02 09:30] VITALS: BP_SYST 0; BP_SYST 115; BP_DIAS 74; PULSE 88; RESP 16; TEMP 98.1; O2SAT 99
[2025-03-02] MEDS ORDERED: CIPR-173 PO (12:50)
--- NOTE | 2025-03-02 12:52 | DVHPN2 ---
Reviewed: Care Plan, H&P, Labs, Medications, Previous Orders, Radiology Changes from previous H/P or p: No Changes Objective Vitals Vital Signs Date Time Temp Pulse Resp B/P (MAP) Pulse Ox O2 Delivery O2 Flow Rate FiO2 03/02/25 09:30 98.1 88 16 115/74 (88) 99 98.1 0/ 03/02/25 08:00 Room Air* 0 21 Intake/Output Intake and Output 03/02/25 07:00 Intake Total 6130 ml Balance 6130 ml Intake Oral 3100 ml IV Total 3030 ml # Voids 20 # Bowel Movements 2 Medications Current Medications Medications Dose Ordered Sig/Maira Route Start Time Stop Time Status Last Admin Dose Admin Sodium Chloride 10 ml Q8HR IV 02/26/25 22:00 03/02/25 05:52 10 ML Docusate Sodium 100 mg BIDPRN PRN PO 02/26/25 19:15 Acetaminophen 650 mg Q6HP PRN PO 02/26/25 19:15 Acetaminophen/ Hydrocodone Bitart 1 tab Q4HP PRN PO 02/26/25 19:15 Ondansetron HCl 4 mg Q4HP PRN IV 02/26/25 19:15 Enoxaparin Sodium 40 mg DAILY SC 02/27/25 10:00 Hydroxyzine HCl 20 mg Q6H PRN PO 02/26/25 19:15 02/28/25 17:18 20 MG Ceftriaxone Sodium 50 ml @ 100 mls/hr DAILY@09 IV 02/28/25 09:00 03/02/25 08:29 100 MLS/HR Sodium Chloride 1,000 ml @ 150 mls/hr Q6H40M IV 02/28/25 13:15 03/02/25 02:09 150 MLS/HR Laboratory Results Laboratory Tests 03/02/25 06:34 Chemistry Test 03/02/25 06:34 Albumin 4.2 g/dL (3.2-4.8) Calcium Level 9.6 mg/dL (8.7-10.4) Magnesium Level 1.9 mg/dL (1.6-2.6) Total Protein 6.7 g/dL (5.7-8.2) LFT Test 03/02/25 06:34 Alanine Aminotransferase (ALT) 9 U/L (7-40) Alkaline Phosphatase 62 U/L (46-116) Aspartate Amino Transferase (AST) 10 U/L (13-40) L Total Bilirubin 0.5 mg/dL (0.2-1.0) Urinalysis Test 02/26/25 22:56 Urine Color Colorless (Yellow) Urine Clarity Clear (Clear) Urine pH 6.5 (5.0-9.0) Urine Specific [place] 1.008 (1.001-1.035) Urine Protein Negative (Negative) Urine Ketones 2+ (Negative) H Urine Blood Negative /uL (Negative) Urine Nitrite Negative (Negative) Urine Bilirubin Negative (Negative) Urine Urobilinogen Normal mg/dL (Negative) Urine Leukocyte Esterase 3+ /uL (Negative) Urine RBC 2 /hpf (0 - 4) Urine Microscopic WBC 45 /HPF (0-5) H Urine Squamous Epithelial Cells Few /hpf (<5) Urine Bacteria Few /hpf (None Seen) H Urine Glucose Normal mg/dL (Normal) Microbiology Microbiology Date/Time Source Procedure Growth Status 02/27/25 15:56 Voided Urine Urine Culture - Final Complete 02/27/25 14:30 Blood Blood Culture - Preliminary NO GROWTH AFTER 48 HOURS OF INCUBATION. Resulted Labs and/or images reviewed: Labs reviewed by me, Image(s) reviewed by me Assessment/Plan Assessment/Plan Intermittent tachycardia: TSH normal, urine drug screen negative, echo 60 percent ejection fraction, cardiology consult by Dr. Tao appreciated, advised sinus tachycardia is ready to UTI advised outpatient follow up with the aerodynamic consultant through primary Dr if symptoms persisting, patient was advised accordingly ruled out by negative beta HCG Acute Dehydration: IV fluids Episodic hypotension Sepsis secondary to acute urinary tract infection: Blood cultures pending, urine cultures negative, continue Rocephin Patient asymptomatic feels better and ambulating with stable vital signs Being discharged home Plan discussed with: Patient Date of Service: March 02, 2025 Billing Provider: BASSAM WOLF MD Common Visit Codes: [id number] INP/OBS CARE(HIGH) BASSAM WOLF MD March 02, 2025 12:52
--- NOTE | 2025-03-02 12:56 | DVHDS2 ---
Discharge Summary Date of Admission February 26, 2025 at 19:06 Date of Discharge: March 02, 2025 Admitting Diagnosis Tachycardia Wounds: None Labs/Diagnostic Data: Laboratory Results Test 03/02/25 06:34 02/27/25 15:56 02/27/25 05:25 02/26/25 22:56 White Blood Count 5.7 10^3/uL (4.4-10.8) Red Blood Count 4.43 10^6/uL (4.0-5.20) Hemoglobin 12.4 g/dL (12.2-16.2) Hematocrit 37.5 % (36.0-46.0) Mean Corpuscular Volume 84.8 fL (80.0-100.0) Mean Corpuscular Hemoglobin 27.9 pg (28.0-32.0) Mean Corpuscular Hemoglobin Concent 32.9 g/dL (32.0-36.0) Red Cell Distribution Width 16.0 % (11.8-14.3) Platelet Count 170 10^3/uL (140-450) Mean Platelet Volume 9.4 fL (6.9-10.8) Neutrophils (%) (Auto) 38.6 % (37.0-80.0) Lymphocytes (%) (Auto) 51.1 % (10.0-50.0) Monocytes (%) (Auto) 5.8 % (0.0-12.0) Eosinophils (%) (Auto) 3.6 % (0.0-7.0) Basophils (%) (Auto) 0.9 % (0.0-2.0) Neutrophils # (Auto) 2.2 10 ^3/uL (1.6-8.6) Lymphocytes # (Auto) 2.9 10 ^3/uL (0.4-5.4) Monocytes # (Auto) 0.3 10 ^3/uL (0-1.3) Eosinophils # (Auto) 0.2 10 ^3/uL (0-0.8) Basophils # (Auto) 0.1 10 ^3/uL (0-0.2) Nucleated Red Blood Cells 0.2 % Sodium Level 142 mmol/L (136-145) Potassium Level 4.6 mmol/L (3.5-5.1) Chloride Level 110 mmol/L (98-107) Carbon Dioxide Level 25 mmol/L (20-31) Anion Gap 7 (5-15) Blood Urea Nitrogen 5 mg/dL (9-23) Creatinine 0.79 mg/dL (0.550-1.02) Glomerular Filtration Rate Calc 110 mL/min (>90) BUN/Creatinine Ratio 6.3 (10.0-20.0) Serum Glucose 89 mg/dL (74-106) Calcium Level 9.6 mg/dL (8.7-10.4) Magnesium Level 1.9 mg/dL (1.6-2.6) Total Bilirubin 0.5 mg/dL (0.2-1.0) Aspartate Amino Transferase (AST) 10 U/L (13-40) Alanine Aminotransferase (ALT) 9 U/L (7-40) Alkaline Phosphatase 62 U/L (46-116) Total Protein 6.7 g/dL (5.7-8.2) Albumin 4.2 g/dL (3.2-4.8) Urine Opiates Screen Neg (NEGATIVE) Urine Fentanyl Screen Neg (NEGATIVE) Urine Barbiturates Screen Neg (NEGATIVE) Urine Phencyclidine Screen Neg (NEGATIVE) Urine Amphetamines Screen Neg (NEGATIVE) Urine Benzodiazepines Screen Neg (NEGATIVE) Urine Cocaine Screen Neg (NEGATIVE) Urine Cannabinoids Screen Neg (NEGATIVE) Beta HCG, Quantitative 0.6 mIU/mL (1.5-4.2) Urine Color Colorless (Yellow) Urine Clarity Clear (Clear) Urine pH 6.5 (5.0-9.0) Urine Specific [place] 1.008 (1.001-1.035) Urine Protein Negative (Negative) Urine Ketones 2+ (Negative) Urine Blood Negative /uL (Negative) Urine Nitrite Negative (Negative) Urine Bilirubin Negative (Negative) Urine Urobilinogen Normal mg/dL (Negative) Urine Leukocyte Esterase 3+ /uL (Negative) Urine RBC 2 /hpf (0 - 4) Urine Microscopic WBC 45 /HPF (0-5) Urine Squamous Epithelial Cells Few /hpf (<5) Urine Bacteria Few /hpf (None Seen) Urine Glucose Normal mg/dL (Normal) Test 02/26/25 14:30 Troponin I High Sensitivity < 3 ng/L (</=34) C-Reactive Protein High Sensitivity 0.03 mg/dL (<1.0) Thyroid Stimulating Hormone (TSH) 0.63 uIU/mL (0.55-4.78) Free Thyroxine (T4) Calculated 1.46 ng/dL (0.89-1.76) Other Laboratory Tests 03/02/25 06:34 Brief Hx & Hospital Course: 19-year-old female with no previous history admitted for tachycardia the patient was found to be in sinus tachycardia secondary to sepsis secondary to urinary tract infection. Treated with Rocephin. Blood cultures negative urine cultures negative urine beta HCG negative patient has had episodic hypotension seen by cardiology advised sinus tachycardia is because of sepsis secondary to urinary tract infection. Advised outpatient follow up if required with the changer fixer through your primary Dr. TSH is normal. Echo 60 percent ejection fraction urine drug screen is negative. At the time of discharge patient is asymptomatic stable vital signs and found eating lunch. Discharged home. Cipro transmitted to pharmacy Consults/Reason for consult Cardiology Dr. Tao Operations or Procedures None Condition at Discharge: Fair Final Diagnosis/Problems List Intermittent tachycardia: TSH normal, urine drug screen negative, echo 60 percent ejection fraction, cardiology consult by Dr. Tao appreciated, advised sinus tachycardia is ready to UTI advised outpatient follow up with the changer fixer through primary Dr if symptoms persisting, patient was advised accordingly ruled out by negative beta HCG Acute Dehydration: IV fluids Episodic hypotension Sepsis secondary to acute urinary tract infection: Blood cultures pending, urine cultures negative, continue Rocephin Patient asymptomatic feels better and ambulating with stable vital signs Being discharged home Discharge Disposition: Home Discharge Instruct/Medications Diet: Regular Activity: No Restrictions, As Tolerated Follow Up/Referral: Follow up with the primary Dr Use medications as prescribed If the symptoms persist you are advised to follow up with the primary Dr for referral to Cardiology for further workup as an outpatient Medications: Cipro Transmitted to pharmacy 35 (Time taken for discharge summary 35 minutes) Discharge Statement: "Patient was advised to return to the ER or call 911 if any headaches, dizziness, shortness of breath, chest pain, abdominal pain, bleeding, fevers, or worsening of medical condition. Patient was counseled about treatment plan, medications, possible side effects, patientverbalized understanding. All questions were answered to the best of my ability. This discharge took greater then 30 minutes in planning, reviewing documentation, counseling the patient, and discussing with other team members." ASSESSMENT ASSESSMENT Hospital Course Improved Assessment Intermittent tachycardia: TSH normal, urine drug screen negative, echo 60 percent ejection fraction, cardiology consult by Dr. Tao appreciated, advised sinus tachycardia is ready to UTI advised outpatient follow up with the changer fixer through primary Dr if symptoms persisting, patient was advised accordingly ruled out by negative beta HCG Acute Dehydration: IV fluids Episodic hypotension Sepsis secondary to acute urinary tract infection: Blood cultures pending, urine cultures negative, continue Rocephin Patient asymptomatic feels better and ambulating with stable vital signs Being discharged home Date of Service: March 02, 2025 Billing Provider: BASSAM WOLF MD Common Visit Codes: [id number] DISCH DAY >30min BASSAM WOLF MD March 02, 2025 12:56
[2025-03-02 13:00] VITALS: BP 126/76; PULSE 92; RESP 18; TEMP 98.6; O2SAT 99
== END 2025-03-02 16:00 | disposition home or self-care (01) | DRG 872 ==
LOC: ER 14:39 → OVERFLOW 19:06 → TELE-WESTW 23:07
PROVIDERS: ADMIT Family Medicine; ATTEND Family Medicine
DX: A41.9 Sepsis, unspecified organism (principal); N39.0 Urinary tract infection, site not specified; I05.9 Rheumatic mitral valve disease, unspecified; F41.9 Anxiety disorder, unspecified; I95.1 Orthostatic hypotension; E86.0 Dehydration; Z79.899 Other long term (current) drug therapy
CPT/HCPCS: 36415; 71045; 80048; 80053; 80307; 81001; 83735; 84439; 84443; 84484; 84702; 85025; 86141; 87040; 87086; 93005; 93306; 99291; G0378

== ENCOUNTER 2025-07-16 14:59 | Emergency (ER) | payer BC ==
[~2025-07-16] VITALS: Ht 162.6 cm; Wt 45.0 kg
[~2025-07-16 14:59] MED LIST: CIPR-173 PO
--- NOTE | 2025-07-16 15:41 | ED.PDOC ---
HPI (NEURO) HPI Comments 19 y/o F, presents to the ED for CC of generalized weakness. Patient states, she has been experiencing symptoms of weakness, brain-fog, and tremors sudden onset Thursday (07/16/25). Upon arrival, to the ED patient is tachycardic with a HR of 133bpm. Patient denies nausea, vomiting, chest pain, or shortness of breath. No other symptoms or modifying factors are present at this time. Chief Complaint: General Weakness Time Seen by MD: 15:33 Reviewed Notes: Nurses Notes, Medications, Allergies Information Source: Patient Mode of Arrival: Ambulatory Severity: Moderate Headache Severity: None Timing: Days Duration: Since onset Prehospital treatment: None Weakness Location: Generalized Onset: At rest Circumstances: Spontaneous Symptoms: Weakness History of: None Modifying factors: Nothing Associated Signs and Symptoms: Weakness Past Medical History PAST MEDICAL HISTORY: Denies [employer] History: Denies all [employer] Hx Family History Family History: Reviewed,noncontributory to illness, Unknown Social History Smoker: Non-Smoker Alcohol: Denies ETOH Use Drugs: Denies Drug Use Lives In: Home Constitutional: reports: weakness; denies: chills, diaphoresis, fatigue, fever, malaise, sweats, others EENTM: denies: blurred vision, double vision, ear bleeding, ear discharge, ear drainage, ear pain, ear ringing, eye pain, eye redness, hearing loss, mouth pain, mouth swelling, nasal discharge, nose bleeding, nose congestion, nose pain, photophobia, tearing, throat pain, throat swelling, voice changes, others Respiratory: denies: cough, hemoptysis, orthopnea, SOB at rest, shortness of breath, SOB with excertion, stridor, wheezing, others Cardiovascular: denies: chest pain, dizzy spells, diaphoresis, Dyspnea on exertion, edema, irregular heart beat, left arm pain, lightheadedness, palpitations, PND, syncope, others Gastrointestinal: denies: abdomen distended, abdominal pain, blood streaked bowels, constipated, diarrhea, dysphagia, difficulty swallowing, hematemesis, melena, nausea, poor appetite, poor fluid intake, rectal bleeding, rectal pain, vomiting, others Genitourinary: denies: abnormal vagina bleeding, burning, dyspareunia, dysuria, flank pain, frequency, hematuria, incontinence, pain, , vagina discharge, urgency, others Neurological: reports: tremors; denies: dizziness, fainting, headache, left sided numbness, left sided weakness, numbness, paresthesia, pre-existing deficit, right sided numbness, right sided weakness, seizure, speech problems, tingling, weakness, others Musculoskeletal: denies: back pain, gout, joint pain, joint swelling, muscle pain, muscle stiffness, neck pain, others Integumetry: denies: bruises, change in color, change in hair/nails, dryness, laceration, lesions, lumps, rash, wounds, others Allergic/Immunocompromised: denies: Difficulty Healing, Frequent Infections, Hives, Itching, others Hematologic/Lymphatic: denies: anemia, blood clots, easy bleeding, easy bruising, swollen glands, others Endocrine: denies: excessive hunger, excessive sweating, excessive thirst, excessive urination, flushing, intolerance to cold, intolerance to heat, unexplained weight gain, unexplained weight loss, others Psychiatric: denies: anxiety, bipolar disorder, depression, hopeless, panic disorder, schizophrenia, sleepless, suicidal, others All Other Systems: Reviewed and Negative Physical Exam General Appearance: Mild Distress HEENT: Normal ENT Inspection, Pharynx Normal, TMs Normal Neck: Full Range of Motion, Non-Tender, Normal, Normal Inspection Respiratory: Chest Non-Tender, Lungs Clear, No Accessory Muscle Use, No Respiratory Distress, Normal Breath Sounds Cardiovascular: No Edema, No JVD, No Murmur, No Gallop, Tachycardia Breast Exam: Deferred Gastrointestinal: No Organomegaly, Non Tender, No Pulsatile Mass, Normal Bowel Sounds, Soft Genitalia: Deferred Pelvic: Deferred Rectal: Deferred Extremities: No calf tenderness, Normal capillary refill, Normal inspection, Normal range of motion, Non-tender, No pedal edema Musculoskeletal : Apperance: Normal Neurologic: Alert, 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 Was a procedure done?: No Differential Diagnosis (SZ) Seizure: N/A General Weakness: Anemia, Dehydration, Electrolyte imbalance X-Ray, Labs, Meds, VS Vital Signs Date Time Temp Pulse Resp B/P (MAP) Pulse Ox O2 Delivery O2 Flow Rate FiO2 07/16/25 16:28 98.0 110 18 138/72 (94) 100 98.0 07/16/25 16:28 110 18 100 Room Air* 0 21 07/16/25 15:41 133 07/16/25 15:09 133 07/16/25 15:01 99.4 169 18 129/91 99 99.4 Lab Test 07/16/25 16:40 07/16/25 15:42 07/16/25 15:40 Range/Units Troponin I High Sensitivity < 3 L < 3 L </=34 ng/L Urine Color Colorless Yellow Urine Clarity Clear Clear Urine pH 7.0 5.0-9.0 Urine Specific Gate 1.003 1.001-1.035 Urine Protein Negative Negative Urine Ketones Negative Negative Urine Blood Trace H Negative /uL Urine Nitrite Negative Negative Urine Bilirubin Negative Negative Urine Urobilinogen Normal Negative mg/dL Urine Leukocyte Esterase Negative Negative /uL Urine RBC <1 0 - 4 /hpf Urine Microscopic WBC < 1 0-5 /HPF Urine Squamous Epithelial Cells Few <5 /hpf Urine Bacteria None seen None Seen /hpf Urine Glucose Normal Normal mg/dL Urine Test Negative Negative Urine Opiates Screen Neg NEGATIVE Urine Fentanyl Screen Neg NEGATIVE Urine Barbiturates Screen Neg NEGATIVE Urine Phencyclidine Screen Neg NEGATIVE Urine Amphetamines Screen Neg NEGATIVE Urine Benzodiazepines Screen Neg NEGATIVE Urine Cocaine Screen Neg NEGATIVE Urine Cannabinoids Screen Neg NEGATIVE White Blood Count 8.7 4.4-10.8 10^3/uL Red Blood Count 4.67 4.0-5.20 10^6/uL Hemoglobin 13.2 12.2-16.2 g/dL Hematocrit 39.2 36.0-46.0 % Mean Corpuscular Volume 83.9 80.0-100.0 fL Mean Corpuscular Hemoglobin 28.2 28.0-32.0 pg Mean Corpuscular Hemoglobin Concent 33.6 32.0-36.0 g/dL Red Cell Distribution Width 16.0 H 11.8-14.3 % Platelet Count 216 140-450 10^3/uL Mean Platelet Volume 8.9 6.9-10.8 fL Neutrophils (%) (Auto) 72.3 37.0-80.0 % Lymphocytes (%) (Auto) 21.8 10.0-50.0 % Monocytes (%) (Auto) 4.9 0.0-12.0 % Eosinophils (%) (Auto) 0.5 0.0-7.0 % Basophils (%) (Auto) 0.5 0.0-2.0 % Neutrophils # (Auto) 6.3 1.6-8.6 10 ^3/uL Lymphocytes # (Auto) 1.9 0.4-5.4 10 ^3/uL Monocytes # (Auto) 0.4 0-1.3 10 ^3/uL Eosinophils # (Auto) 0 0-0.8 10 ^3/uL Basophils # (Auto) 0 0-0.2 10 ^3/uL Nucleated Red Blood Cells 0.1 % Sodium Level 141 136-145 mmol/L Potassium Level 3.5 3.5-5.1 mmol/L Chloride Level 105 98-107 mmol/L Carbon Dioxide Level 24 20-31 mmol/L Anion Gap 12 5-15 Blood Urea Nitrogen 7 L 9-23 mg/dL Creatinine 0.85 0.550-1.02 mg/dL Glomerular Filtration Rate Calc 101 >90 mL/min BUN/Creatinine Ratio 8.2 L 10.0-20.0 Serum Glucose 110 H 74-106 mg/dL Calcium Level 9.8 8.7-10.4 mg/dL Magnesium Level 2.1 1.6-2.6 mg/dL Current Medications Medications (Trade) Dose Ordered Sig/Maira Route Start Time Stop Time Status Last Admin Sodium Chloride 1,000 ml @ 1,000 mls/hr Q1H ONCE IV 07/16/25 15:30 07/16/25 16:29 DC 07/16/25 15:49 Sodium Chloride 1,000 ml @ 1,000 mls/hr Q1H ONCE IV 07/16/25 16:45 07/16/25 17:44 DC 07/16/25 16:43 IV Hep-Lock was established. The patient was given a 1 L bolus of normal saline The patient's heart rate came down to around 103 after the normal saline The patient we gave the patient another bolus of normal saline The urine tox is negative The urine test is negative for infection The troponin level is negative The chemistry panel and CBC are within normal limits At this time, the patient is being discharged and will follow up with the primary care doctor The patient will return to the emergency department's condition worsens. Time of 1ST Reevaluation: 14:07 Reevaluation 1ST: Unchanged Patient Education/Counseling: Diagnosis, Treatment, Prognosis, Need For Follow Up Family Education/Counseling: No Family Present Departure 1 Departure Time of Disposition: 18:06 Impression: Primary Impression: Sinus tachycardia Additional Impression: Viral syndrome Disposition: 01 HOME / SELF CARE / HOMELESS Condition: Fair Discharged With: Self Critical Care Note Critical Care Time?: No Stability Stability form required: No Heart Score Heart Score: Heart Score Response (Comments) Value History N/A 0 EKG N/A 0 Age N/A 0 Risk Factors N/A 0 Troponin N/A 0 Total 0 I personally scribed for THALIA LANE MD ([email or web address]) on 07/16/25 at 15:41. El ectronically submitted by Marylu Whitaker ([email or web address]). THALIA LANE MD Jul 16, 2025 15:41
[2025-07-16] MEDS: SODIUM CHLORIDE 0.9% 1,000 ML IV ONE ×2 (15:49→16:43)
[2025-07-16 15:50] LABS: Hematocrit 39.2 % (36.0-46.0); Hemoglobin 13.2 g/dL (12.2-16.2); Mean Corpuscular Hemoglobin 28.2 pg (28.0-32.0); Mean Corpuscular Volume 83.9 fL (80.0-100.0); Nucleated Red Blood Cells % 0.1 %
[2025-07-16 16:00] LABS: Anion Gap 12 (5-15); Carbon Dioxide 24 mmol/L (20-31); Chloride 105 mmol/L (98-107); Potassium 3.5 mmol/L (3.5-5.1); Sodium 141 mmol/L (136-145)
[2025-07-16 16:01] LABS: Calcium 9.8 mg/dL (8.7-10.4)
[2025-07-16 16:05] LABS: Urine Protein, UAD Negative (Negative)
[2025-07-16 16:06] LABS: BUN/Creatinine Ratio 8.2 (10.0-20.0); Magnesium 2.1 mg/dL (1.6-2.6)
[2025-07-16 16:21] LABS: Blood Urea Nitrogen 7 mg/dL (9-23); Glucose 110 mg/dL (74-106)
[2025-07-16 16:22] LABS: Amphetamine Screen, Urine Neg (NEGATIVE); Barbiturate Scree,Urine Neg (NEGATIVE); Benzodiazephine Screen, Urine Neg (NEGATIVE); Cannabinoid Screen, Urine Neg (NEGATIVE); Cocaine Screen, Urine Neg (NEGATIVE); Opiate Scree,Urine Neg (NEGATIVE); Phencyclidine Screen, Urine Neg (NEGATIVE)
[2025-07-16 16:28] VITALS: PULSE 110; RESP 18; O2SAT 100
[2025-07-16 18:30] VITALS: BP 137/93; PULSE 100; RESP 18; TEMP 98.4; O2SAT 98
--- NOTE | 2025-07-16 23:22 | ECG ---
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
== END 2025-07-16 18:31 | disposition home or self-care (01) ==
LOC: ER 14:59
DX: R00.0 Tachycardia, unspecified (principal); B34.9 Viral infection, unspecified; Z79.899 Other long term (current) drug therapy
CPT/HCPCS: 36415; 80048; 80307; 81001; 81025; 83735; 84484; 85025; 93005; 96360; 96361; 99284; J7030